=== PATIENT | female | born 1990 | race Native Hawaiian/Other Pacific Islander ===

== ENCOUNTER 2018-11-29 10:47 | Emergency (ER) | payer OTHER ==
[~2018-11-29] VITALS: Ht 160 cm; Wt 51.3 kg
[2018-11-29 11:34] LABS: PLATELET COUNT 253 K/uL (152-353)
[2018-11-29 11:44] LABS: POTASSIUM 3.9 mmol/L (3.6-5.2)
[2018-11-29 13:45] VITALS: BP 103/58; TEMP 98.5
== END 2018-11-29 13:45 | disposition home or self-care (01) ==
LOC: ED 10:47
PROVIDERS: Family Medicine
DX: R10.84 Generalized abdominal pain (principal); Z33.1 Pregnant state, incidental; Z3A.13 13 weeks gestation of pregnancy; E87.1 Hypo-osmolality and hyponatremia
CPT/HCPCS: 36415; 80053; 81000; 84702; 85027; 96360; 99284